=== PATIENT | female | born 1985 | race Caucasian/White ===

== ENCOUNTER → 2017-06-04 | Outpatient (CLI) | payer BC ==
[2017-06-04 16:11] LABS: CH 29.9; CHCM 34.4; HCT 35.1 % (34.0-46.0); HDW 2.67; HGB 12.1 gm/dL (11.4-16.0); MCH 30.1 pg (25.0-35.0); MCHC 34.5 g/dL (31.0-37.0); MCV 87.3 fL (80.0-100.0); Mean Platelet Volume 7.7; RBC 4.02 m/uL (3.80-5.40); RDW 13.4 % (11.5-15.5); WBC 9.2 k/uL (3.8-10.6)
[2017-06-04 16:18] LABS: Glucose 73 mg/dL (74-99); Non-African American GFR(MDRD) >60 (>60 ml/min/1.73 sqM)
[2017-06-04 16:50] LABS: Hepatitis B Surface Ag Index 0.05
[2017-06-05 01:47] LABS: Treponemal Ab Non-Reactive (Non-Reactive)
[2017-06-05 04:51] LABS: Toxoplasma Antibody (IgG) <3.0 IU/mL (<7.2)
== END | disposition home or self-care (01) ==
LOC: LABWHC1 15:37
PROVIDERS: ATTEND Obstetrics & Gynecology
DX: Z34.82 Encounter for supervision of other normal pregnancy, second trimester (principal); Z3A.00 Weeks of gestation of pregnancy not specified
CPT/HCPCS: 36415; 82565; 82947; 85027; 86762; 86777; 86778; 86780; 86850; 86900; 86901; 87340; 87390

== ENCOUNTER → 2017-08-11 | Outpatient (CLI) | payer BC ==
[2017-08-11 11:19] LABS: CH 29.2; CHCM 32.4; HCT 34.8 % (34.0-46.0); HDW 3.15; HGB 11.1 gm/dL (11.4-16.0); Hypochromasia Slight; MCH 28.9 pg (25.0-35.0); MCHC 31.9 g/dL (31.0-37.0); MCV 90.8 fL (80.0-100.0); Mean Platelet Volume 8.8; RBC 3.84 m/uL (3.80-5.40); RDW 13.5 % (11.5-15.5); WBC 8.6 k/uL (3.8-10.6)
== END | disposition home or self-care (01) ==
LOC: LABWHC1 09:27
PROVIDERS: ATTEND Obstetrics & Gynecology
DX: Z34.82 Encounter for supervision of other normal pregnancy, second trimester (principal)
CPT/HCPCS: 36415; 82950; 85027; 86850

== ENCOUNTER 2017-08-29 12:09 | Outpatient (CLI) | payer BC ==
[2017-08-29 14:01] VITALS: BP 98/56; PULSE 71; RESP 16; TEMP 98.1
--- NOTE | 2017-11-14 23:29 | P.MSEPDOC ---
Presenting Problems - Arrival Data Date of Arrival on Unit: 08/29/17 Time of Arrival on Unit: 12:14 Mode of Transport: Ambulatory Medical History - Information : 2 Para: 1 Term: 1 : 0 Abortions: Spontaneous or Elective: 0 Number of Living Children: 1 - Gestational Age Gestational Age by MAXWELL (wks/days): 28 Weeks and 0 Days Vital Signs - Temperature Temperature: 98.1 F Temperature Source: Oral - Pulse Right Brachial Pulse Rate: 71 Pulse Assessment Method: Automatic Cuff - Respirations Respiratory Rate: 16 Oxygen Delivery Method: Room Air O2 Sat by Pulse Oximetry: 98 - Blood Pressure Right Arm Blood Pressure: 98/56 Blood Pressure Mean: 70 Blood Pressure Source: Automatic Cuff Medical Screen Scoring (Post) - Uterine Contractions Frequency: N/A Duration: N/A Intensity: N/A - Maternal Vital Signs Maternal Temperature: N/A Maternal Blood Pressure: N/A Signs of Preeclampsia: N/A Maternal Respirations: N/A - Pain Assessment Pain Behavior: None Exhibited - Maternal Trauma Maternal Trauma: N/A - Assessment Heart Rate: 140 Heart Rate - NICHD Category: Category I (Normal) = 0 NST: Reactive Position: N/A Station: N/A - Total Score Total Score (Post): 0 - Post Treatment Level of Risk Post Treatment Level of Risk: N/A Physician Notification (Post) - Physician Notified Physician Notified Date: 08/29/17 Physician Notified Time: 13:45 Physician/Practitioner Notified:: Rg Spoke With: Rg New Order Received: Yes - Notification Comment Comment: pt may be discharged home Disposition - Disposition OB Disposition: Discharge to home Discharge Date: 08/29/17 Discharge Time: 13:51 I agree with the RN Medical Screening Exam: Yes Risk & Benefit of care provided described in d/c instruction: Yes Diagnosis: DEHYDRATION
== END 2017-08-29 13:51 | disposition home or self-care (01) ==
LOC: FBPOP 12:09
PROVIDERS: ATTEND Obstetrics & Gynecology
DX: O99.89 Other specified diseases and conditions complicating pregnancy, childbirth and the puerperium (principal); E86.0 Dehydration; Z3A.28 28 weeks gestation of pregnancy
CPT/HCPCS: 59025; 99213

== ENCOUNTER 2018-02-27 14:47 | Emergency (ER) | payer BC, OTHER ==
[2018-02-27 15:15] VITALS: BP 130/71; PULSE 65; RESP 18; TEMP 98
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
== END 2018-02-27 15:51 | disposition home or self-care (01) ==
LOC: EC 14:47
DX: S40.811A Abrasion of right upper arm, initial encounter (principal); Z79.899 Other long term (current) drug therapy; Z88.8 Allergy status to other drugs, medicaments and biological substances; W50.4XXA Accidental scratch by another person, initial encounter; Y99.0 Civilian activity done for income or pay
CPT/HCPCS: 99283